=== PATIENT | female | born 1995 | race Hispanic/Latino ===

== ENCOUNTER 2022-07-22 19:01 | Emergency (ER) | payer OTHER ==
[2022-07-22] MEDS ORDERED: NA CHLORIDE 0.9% 1,000 ML ONE (19:31)
--- NOTE | 2022-07-22 19:53 | EDPHYS ---
Physician Documentation [facility] Name: Gayatri Livingston Age: 26 yrs Sex: Female : 1995 Arrival Date: 07/22/2022 Time: 19:01 Bed 2 Private MD: ED Physician Kwabena Wang HPI: 07/22 19:46 This 26 yrs old Female presents to ER via Unassigned with complaints of 35 wks terence ,decreased movement. 19:46 The patient presents to the emergency department with DECREASED MOVEMENT X 1 DAY. terence The estimated gestational age is 35 weeks. course: care: private OB physicianJACOB. Previous pregnancies: in previous pregnancies patient has had vaginal delivery. Associated signs and symptoms: The patient has no apparent associated signs or symptoms. The patient has not experienced similar symptoms in the past. 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 - Social history:: Smoking status: Patient denies any tobacco usage or history of. - Family history:: not pertinent. ROS: 19:48 Constitutional: Negative for fever, chills, and weight loss, Eyes: Negative for injury, terence pain, redness, and discharge, ENT: Negative for injury, pain, and discharge, Neck: Negative for injury, pain, and swelling, Cardiovascular: Negative for chest pain, palpitations, and edema, Respiratory: Negative for shortness of breath, cough, wheezing, and pleuritic chest pain, Abdomen/GI: Negative for abdominal pain, nausea, vomiting, diarrhea, and constipation, Back: Negative for injury and pain, MS/Extremity: Negative for injury and deformity, Skin: Negative for injury, rash, and discoloration, Neuro: Negative for headache, weakness, numbness, tingling, and seizure, Psych: Negative for depression, anxiety, suicide ideation, homicidal ideation, and hallucinations, Allergy/Immunology: Negative for hives, rash, and allergies, Endocrine: Negative for neck swelling, polydipsia, polyuria, polyphagia, and marked weight changes, Hematologic/Lymphatic: Negative for swollen nodes, abnormal bleeding, and unusual bruising. 19:48 : Positive for DECREASED MOVEMENT. Exam: 19:49 Constitutional: This is a well developed, well nourished patient who is awake, alert, terence and in no acute distress. Head/Face: Normocephalic, atraumatic. Eyes: Pupils equal round and reactive to light, extra-ocular motions intact. Lids and lashes normal. Conjunctiva and sclera are non-icteric and not injected. Cornea within normal limits. Periorbital areas with no swelling, redness, or edema. ENT: Nares patent. No nasal discharge, no septal abnormalities noted. Tympanic membranes are normal and external auditory canals are clear. Oropharynx with no redness, swelling, or masses, exudates, or evidence of obstruction, uvula midline. Mucous membranes moist. Neck: Trachea midline, no thyromegaly or masses palpated, and no cervical lymphadenopathy. Supple, full range of motion without nuchal rigidity, or vertebral point tenderness. No Meningismus. Chest/axilla: Normal chest wall appearance and motion. Nontender with no deformity. No lesions are appreciated. Cardiovascular: Regular rate and rhythm with a normal S1 and S2. No gallops, murmurs, or rubs. Normal PMI, no JVD. No pulse deficits. Respiratory: Lungs have equal breath sounds bilaterally, clear to auscultation and percussion. No rales, rhonchi or wheezes noted. No increased work of breathing, no retractions or nasal flaring. Abdomen/GI: Soft, non-tender, with normal bowel sounds. No distension or tympany. No guarding or rebound. No evidence of tenderness throughout. Back: No spinal tenderness. No costovertebral tenderness. Full range of motion. Skin: Warm, dry with normal turgor. Normal color with no rashes, no lesions, and no evidence of cellulitis. MS/ Extremity: Pulses equal, no cyanosis. Neurovascular intact. Full, normal range of motion. Neuro: Awake and alert, GCS 15, oriented to person, place, time, and situation. Cranial nerves II-XII grossly intact. Motor strength 5/5 in all extremities. Sensory grossly intact. Cerebellar exam normal. Normal gait. Psych: Awake, alert, with orientation to person, place and time. Behavior, mood, and affect are within normal limits. 19:49 Abdomen/GI: Inspection: gravid appearance, is noted, Bowel sounds: normal, Palpation: abdomen is soft and non-tender, in all quadrants, Liver: no appreciated palpable abnormalities, Hernia: not appreciated. Vital Signs: 19:30 BP 126 / 88; Pulse 84; Resp 16; Temp 98.8(O); Pulse Ox 100% on R/A; nj1 19:45 BP 124 / 80; Pulse 80; Resp 18; Pulse Ox 100% on 2 lpm NC; nj1 Tejinder Coma Score: 19:49 Eye Response: spontaneous(4). Motor Response: obeys commands(6). Verbal Response: terence oriented(5). Total: 15. MDM: 19:14 Patient medically screened. terence 19:50 Differential diagnosis: nonspecific abdominal pain, delivery of , placenta terence previa, urinary tract infection. Data reviewed: vital signs, nurses notes, lab test result(s), radiologic studies, ultrasound. Consideration of Admission/Observation Patient was admitted/placed on observation. Escalation of care including admission/observation considered. I considered the following discharge prescriptions or medication management in the emergency department Medications were administered in the Emergency Department. See MAR. Test considered but Not performed: EKG: NO EKG. Historians other than the Patient: Spouse/Significant Other: , INFORMED. Counseling: I had a detailed discussion with the patient and/or guardian regarding: the historical points, exam findings, and any diagnostic results supporting the discharge/admit diagnosis, lab results, radiology results, the need to transfer to another facility, for higher level of care, [facility] does not immediately have the required specialist. 07/22 19:15 Order name: Abo/rh Typing [facility] 07/22 19:15 Order name: Basic Metabolic Panel [facility] 07/22 19:15 Order name: CBC with Diff [facility] 07/22 19:15 Order name: Test, Urine [facility] 07/22 19:15 Order name: Quantitative Hcg [facility] 07/22 19:15 Order name: Urinalysis w/ reflexes [facility] 07/22 19:15 Order name: US OB Limited [facility] 07/22 19:15 Order name: IV Saline Lock; Complete Time: 19:59 [facility] 07/22 19:15 Order name: Labs collected and sent; Complete Time: 19:59 [facility] 07/22 19:15 Order name: NPO; Complete Time: 19:59 [facility] 07/22 19:15 Order name: FHT's; Complete Time: 19:59 [facility] 07/22 19:20 Order name: Misc. Order: O2 nc 2 liters, LLD POSITION; Complete Time: 19:59 terence Administered Medications: 19:40 Drug: NS 0.9% IV 1000 ml Route: IV; Rate: 1 bolus; Site: left antecubital; nj1 20:00 Follow up: Response: No adverse reaction; IV Status: Infusion continued upon transfer; nj1 IV Intake: 100ml Disposition Summary: 07/22/22 19:53 Transfer Ordered Transfer Location: [facility] Reason: Higher level of care terence Condition: Fair terence Problem: new terence Symptoms: have improved terence Accepting Physician: TO DR Jerry AREVALO(07/22/22 20:15) rv1 Diagnosis - 35 weeks gestation of terence - related conditions, unspecified - DECREASED MOVEMENT terence Forms: - Medication Reconciliation Form terence - SBAR form terence Signatures: Dispatcher [employer] Kwabena Masters MD MD cha Villegas, Rebecca rv1 Cammy Narvaez RN RN nj1 Corrections: (The following items were deleted from the chart) 20:15 19:[address] Jerry AREVALO cha rv1
[2022-07-22 20:12] LABS: Absolute Lymphocytes (CBC) 2.6 K/uL (0.7-4.9); Hematocrit 34.6 % (36.0-45.0); Lymphocytes % 32.1 % (15.3-44.8); MCV 90.7 fL (80-100); MPV 9.8 fL (7.6-11.3); RBC Red Blood Cell Count 3.82 M/uL (3.86-4.86)
--- NOTE | 2022-07-22 20:16 | ER ---
Nurse's Notes [facility] Name: Gayatri Livingston Age: 26 yrs Sex: Female : 1995 Arrival Date: 07/22/2022 Time: 19:01 Bed 2 Private MD: Diagnosis: 35 weeks gestation of ; related conditions, unspecified-DECREASED MOVEMENT Presentation: 07/22 19:30 Chief complaint: Patient states: Decreased movement. . 35 wks gestation. Sees ga1 OBGYN in [place] at "[facility]". States she felt that the baby wasn't moving as much the day before yesterday. Denies any vaginal bleeding or pain. 19:30 Method Of Arrival: Ambulatory [facility] 19:30 Coronavirus screen: Vaccine status: Patient reports being unvaccinated. Ebola Screen: [facility] No symptoms or risks identified at this time. Initial Sepsis Screen: Does the patient meet any 2 criteria? No. Patient's initial sepsis screen is negative. Does the patient have a suspected source of infection? No. Patient's initial sepsis screen is negative. Risk Assessment: Do you want to hurt yourself or someone else? Patient reports no desire to harm self or others. Onset of symptoms was July 20, 2022. 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 - Social history:: Smoking status: Patient denies any tobacco usage or history of. - Family history:: not pertinent. Assessment: 19:30 General: Appears in no apparent distress. comfortable, Behavior is calm, cooperative, nj1 appropriate for age. General: Reports Decreased movement. Pain: Denies pain. Neuro: Level of Consciousness is awake, alert, obeys commands, Oriented to person, place, time, situation. Cardiovascular: Patient's skin is warm and dry. Respiratory: Airway is patent Respiratory effort is even, unlabored. : 20:06 Reassessment: [facility] here to transport patient, report given to Joy FOOTE. nj1 Vital Signs: 19:30 BP 126 / 88; Pulse 84; Resp 16; Temp 98.8(O); Pulse Ox 100% on R/A; nj1 19:45 BP 124 / 80; Pulse 80; Resp 18; Pulse Ox 100% on 2 lpm NC; nj1 Vitals: 19:45 Heart Tones 148. nj1 Teijnder Coma Score: 19:49 Eye Response: spontaneous(4). Motor Response: obeys commands(6). Verbal Response: terence oriented(5). Total: 15. ED Course: 19:09 Patient arrived in ED. mr 19:13 Cammy Narvaez RN is Primary Nurse. nj1 19:14 Kwabena Wang MD is Attending Physician. terence 19:15 Initiated transfer to [facility] with Sun Goff. rv1 19:30 Arm band placed on left wrist. nj1 19:31 Pt accepted to [facility] by Dr. Tran to L\\T\\D. rv1 19:40 Inserted saline lock: 20 gauge in left antecubital area, using aseptic technique. Blood nj1 collected. 19:50 US OB Limited In Process Unspecified. EDMS 20:13 Triage completed. nj1 Administered Medications: 19:40 Drug: NS 0.9% IV 1000 ml Route: IV; Rate: 1 bolus; Site: left antecubital; nj1 20:00 Follow up: Response: No adverse reaction; IV Status: Infusion continued upon transfer; nj1 IV Intake: 100ml Intake: 20:00 IV: 100ml; Total: 100ml. nj1 Outcome: 19:50 Transferred by ground EMS to [facility], Transfer form nj1 completed. Note: Report called to Renu LENNON at 2007. 19:50 Condition: stable 19:50 Instructed on the need for transfer. 19:53 ER care complete, transfer ordered by . terence 20:15 Patient left the ED. rv1 Signatures: Dispatcher [employer] EDMS Felipe Kwabena, MD MD terence Dinero, Crystal mr Mancilla, Zaida rv1 Cammy Narvaez RN RN nj1
[2022-07-22 20:24] LABS: Specific Gravity 1.007 (1.005-1.030); Urine Bilirubin NEGATIVE (Negative); Urine Blood Negative (Negative); Urine Clarity Clear (Clear); Urine Color Colorless (Yellow); Urine Glucose NEGATIVE (Negative); Urine Protein NEGATIVE (Negative); Urine Urobilinogen Normal (Normal)
[2022-07-22 20:28] LABS: Specific Gravity 1.007 (1.005-1.030)
[2022-07-22 20:40] LABS: Potassium 3.6 mEq/L (3.5-5.1)
[2022-07-22 21:11] VITALS: BP 126/88; TEMP 98.8; O2SAT 100
--- NOTE | 2022-07-22 21:19 | RAD REPORT ---
EXAM DESCRIPTION: US - OB Limited - 07/22/2022 7:49 pm CLINICAL HISTORY: ABD CRAMPING, COMPARISON: No comparisons TECHNIQUE: Sonographic grayscale and color flow images of a third -trimester were obtained through a transabdominal approach. FINDINGS: A single live intrauterine is identified. heart rate 148 BPM. Presentation is cephalic. Cervical canal is closed. It measures 5.1 centimeter in length. Amniotic fluid index is within normal: 9.96 centimeter. datin weeks and 0 days by femur length (6.4 centimeter). No other pelvic abnormalities. Maternal ovaries were not visualized. No free fluid. IMPRESSION: 1. Single live intrauterine . datin weeks and 0 days.
== END 2022-07-22 20:15 | disposition short-term general hospital (02) ==
LOC: ER 19:01
DX: O36.8130 Decreased fetal movements, third trimester, not applicable or unspecified (principal); Z3A.35 35 weeks gestation of pregnancy; Z79.82 Long term (current) use of aspirin
CPT/HCPCS: 85025; 80048; 36415; 86900; 81025; 86901; 84702; 81003; 76815; 99285; J7030